=== PATIENT | female | born 1965 | race Caucasian/White ===

== ENCOUNTER 2018-03-11 16:35 | Emergency (ER) | payer OTHER ==
[2018-03-11] MEDS ORDERED: predniSONE TAB* 20 MG PO ONE (19:39)
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
[2018-03-11 20:18] VITALS: BP 137/81
== END 2018-03-11 20:17 | disposition home or self-care (01) ==
LOC: ED 16:35
DX: T78.40XA Allergy, unspecified, initial encounter (principal); R42 Dizziness and giddiness; R11.2 Nausea with vomiting, unspecified; Z88.0 Allergy status to penicillin; Z91.040 Latex allergy status; Z98.51 Tubal ligation status
CPT/HCPCS: 99282; J7512